=== PATIENT | male | born 1970 | race Caucasian/White ===

== ENCOUNTER → 2021-03-19 | Outpatient (CLI) | payer BC ==
[~2021-03-19] MED LIST: HYDACE5 PO
[2021-03-20 10:38] LABS: Stool Occult Bld Immuno 1 Negative (NEGATIVE)
== END | disposition home or self-care (01) ==
LOC: LAB SHORT 14:14 → LAB 14:14
PROVIDERS: Physician Assistant
DX: Z12.11 Encounter for screening for malignant neoplasm of colon (principal)
CPT/HCPCS: G0328

== ENCOUNTER 2025-04-07 05:53 | Day surgery (SDC) | payer OTHER ==
[~2025-04-07] VITALS: Ht 180.3 cm; Wt 133.5 kg
[2025-04-07] VITALS (12 sets, daily range): BP systolic 140–178; BP diastolic 83–130
[2025-04-07] MEDS ORDERED: ATOR20 (06:48)
[2025-04-07] MEDS ORDERED: IRBE150 (06:48)
--- NOTE | 2025-04-07 07:06 | NUR ---
Ambulatory in Day SurgeryPre-Op teaching done. Pt verbalizes understanding. History, Chart, Medications and Allergies reviewed before start of procedure.Patient confirms NPO status and agrees with scheduled surgery. Patient States Post-Procedure ride home has been arranged.
--- NOTE | 2025-04-07 08:11 | NUR ---
04/07/25 0811 Coby Rodríguez History, Chart, Medications and Allergies reviewed before start of procedure.DR TUCKER PROVIDING ANESTHESIA SEE RECORDS
--- NOTE | 2025-04-07 08:40 | NUR ---
Discharged via wheelchair to private car for ride home. Patient States Post-Procedure ride home has been arranged. Discharge instructions reviewed with patient. Patient verbalizes understanding. Copy given to patient to take home.
== END 2025-04-07 23:00 | disposition home or self-care (01) ==
LOC: ORSCMMR 05:53 → ORD 08:00 → ORSCMMR 23:00
PROVIDERS: Internal Medicine Gastroenterology
PROC: 0DJD8ZZ Inspection of Lower Intestinal Tract, Via Natural or Artificial Opening Endoscopic (ICD-10-PCS; principal; 2025-04-07 08:00)
DX: Z12.11 Encounter for screening for malignant neoplasm of colon (principal); Z80.0 Family history of malignant neoplasm of digestive organs; E66.01 Morbid (severe) obesity due to excess calories; Z68.41 Body mass index [BMI] 40.0-44.9, adult; G47.33 Obstructive sleep apnea (adult) (pediatric); I10 Essential (primary) hypertension; E78.00 Pure hypercholesterolemia, unspecified; K21.9 Gastro-esophageal reflux disease without esophagitis; Z79.899 Other long term (current) drug therapy
CPT/HCPCS: J2704; J7120